=== PATIENT | female | born 1985 | race Caucasian/White ===

== ENCOUNTER → 2017-03-09 | Day surgery (SDC) | payer OTHER ==
[2017-02-28 07:37] VITALS: Ht 157.5 cm; Wt 72.7 kg
[~2017-03-09] VITALS: Ht 157.5 cm; Wt 72.7 kg
[~2017-03-09] MED LIST: ATROPINE SULFATE 0.1 MG/ML 5ML SYR IV PRN; CEFAZOLIN 2000 MG/60 ML D5W IV SCH; FENTANYL CITRATE INJ 50 MCG/1 ML 2 ML VIAL IV PRN; FENTANYL CITRATE INJ 50 MCG/1 ML 2 ML VIAL ONE; FLUO20CA35 PO; HYDR-5688 PO; HYDROCODONE/ACETAMOPHEN 5/325MG TAB PO PRN; IBUP-1105 PO; KETO10TA PO; KETOROLAC TROMETHAMINE 30 MG/ML VIAL IV. PRN; LACTATED RINGER'S 1000ML 1,000 ML IV SCH; LIDOCAINE HCL 2% 2 ML VIAL (20MG/ML) ONE; LIDOCAINE HCL 2% LOCAL 20 ML VIAL ONE; MIDAZOLAM HCL 1 MG/ML 2ML VIAL ONE; ONDANSETRON INJ 2 MG/ML 2 ML VIAL IV PRN; PRLSR20 PO; PROPOFOL IV EMULSION 10 MG/ML 20 ML VIAL IV ONE; SODIUM CHLORIDE 0.9% 1000ML 1,000 ML IV SCH
--- NOTE | 2017-03-09 08:11 | History & Physical Bridge - [place] ---
H&P Re-Evaluation Bridge Note: I have examined the patient, reviewed the History & Physical and in the interval since the performance of the History & Physical I have noted the following changes of clinical significance: No changes noted
--- NOTE | 2017-03-09 10:38 | [facility] Post Operative Brief Note ---
Immediate Operative Summary Operative Date Mar 09, 2017. Pre-Operative Diagnosis Left Carpal Tunnel Syndrome Post-Operative Diagnosis Same Procedure(s) Performed Left Carpal Tunnel Release Surgeon Dr. Holder Student Success Counselor Surgeon(s) Angelique Soares PA-C Estimated Blood Loss 1ml Findings as above Specimens None Complication(s) None Disposition Recovery Room / PACU
[2017-03-09 10:42] VITALS: TEMP 36.8
--- NOTE | 2017-03-09 10:58 | Discharge Instructions-SurgCtr ---
Discharge Instructions Date of Service Mar 09, 2017. Visit Reason for Visit: Left Carpal Tunnel Syndrome, Triggering Of Digit Discharge Discharge Diagnosis / Problem: SAME ABOVE Discharge Goals Goal(s): Decrease discomfort, Improve function Activity Recommendations Activity Limitations: as noted below Anesthesia . Post Anesthesia Instructions: If you have had General Anesthesia or IV Sedation: * Do not drive today. * Resume driving when surgeon permits. * Do not make important decisions or sign legal documents today. * Call surgeon for: 1. Temperature elevations greater than 101 degrees F. 2. Uncontrollable pain. 3. Excessive bleeding. 4. Persistent nausea and vomiting. 5. Medication intolerance (nausea, vomiting or rash). * For nausea and vomiting use only clear liquids such as: tea, soda, bouillon until nausea subsides, then gradually increase diet as tolerated. * If you have any concerns or questions, call your surgeon's office. If physician is unavailable and it is an emergency, call 911 or go to the nearest emergency room. . Instructions / Follow-Up Instructions / Follow-Up MEDICATIONS: * Resume previous medications unless instructed otherwise by your surgeon. * Always take pain medication on a full stomach or with food to avoid upset stomach. * Do not drink alcohol or drive while taking narcotics. * Ibuprofen or Tylenol may be taken if narcotic not needed. SPECIAL CARE INSTRUCTIONS: __ None _X_ Keep extremity elevated and iced x 48 hours; apply ice 20-30 minutes 8-10 times/day. May remove at night. __ Sling __24 hrs/day __ Remove at night __ Shoulder Immobilizer __ 24 hrs/day __ Remove at night _X_ Dressing __ Maintain until seen in office, may shower with plastic over site _X_ Remove dressings in 5 DAYS. MAY SHOWER SOONER IF COVERED WITH PLASTIC BAG _X_ Cover incisions with band-aids after showering __ Do not remove steri-strips Call physician if chills or temperature rises above 102 degrees or pain unrelieved by prescribed pain medications at . . Diet Recommendations Home Diet: no limitations Fluid Restriction: None Procedures Procedures Performed: Left Carpal Tunnel Release Pending Studies Studies pending at discharge: no Work Instructions Return To Work: after follow-up Lifting Limitations: no more than 10 pounds Medical Emergencies . Who to Call and When: Medical Emergencies: If at any time you feel your situation is an emergency, please call 911 immediately. . Non-Emergent Contact Non-Emergency issues call your: Primary Care Provider Call Non-Emergent contact if: you have a fever, temperature is above 101.5 . . "Provider Documentation" section prepared by Martín Soares. .
--- NOTE | 2017-03-09 10:58 | Anesthesia Progress Nt - [facility] ---
Anesthesia Post Op Note Date & Time Mar 09, 2017 at 10:58 Vital Signs Pain Intensity: 0 Vital Signs Past 12 Hours Date Time Temp Pulse Resp B/P Pulse Ox O2 Delivery O2 Flow Rate FiO2 03/09/17 10:42 36.8 68 16 100/64 96 Room Air 03/09/17 07:59 37.0 62 16 121/86 100 Room Air Notes Mental Status: alert / awake / arousable, participated in evaluation Pt Amnestic to Procedure: Yes Nausea / Vomiting: adequately controlled Pain: adequately controlled Airway Patency, RR, SpO2: stable & adequate BP & HR: stable & adequate Hydration State: stable & adequate Anesthetic Complications: no major complications apparent
[2017-03-09 11:15] VITALS: BP 135/90; PULSE 68; O2SAT 99
--- NOTE | 2017-03-09 13:02 | OPERATIVE REPORT ---
DATE OF OPERATION: 03/09/2017 PREOPERATIVE DIAGNOSIS: Carpal tunnel syndrome of the left wrist. POSTOPERATIVE DIAGNOSIS: Same. PROCEDURE: Open left carpal tunnel release. SURGEON: Dr. Nadeem Holder. GROUP SALES MANAGER: James Soares PA-C, whose assistance was necessary for helping with retraction and closure. ANESTHESIA: Local with sedation. COMPLICATIONS: None. CONDITION: Stable to PACU. INDICATIONS: Loulou is a pleasant 31-year-old female who presented to my office with paresthesias in her left hand. 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 After failing conservative treatment, she elected to undergo open carpal tunnel release. Description of procedure: On 03/09/2017 she arrived at [facility] for the above procedure. She was seen in the preoperative holding area and the operative extremity was identified and signed. She was given a preoperative antibiotic, taken back to the operating room, laid on the table in supine position and given basic sedation. The left wrist was then prepped and draped in sterile fashion and time-out was done and the patient and operative extremity was properly identified. The surgical site was anesthetized with 10 mL of lidocaine. An incision was made directly over the transverse carpal ligament. Dissection was taken down through the palmar fascia and the transverse carpal ligament was released. Care was taken to ensure complete proximal and distal release. The wound was then irrigated and closed with 4-0 nylon suture in a mattress fashion. She was then placed in a soft dressing and taken to the postanesthesia care unit in stable condition. She tolerated the procedure well.2 I attest to the content of the Intraoperative Record and any orders documented therein. Any exceptio ns are noted below.
== END | disposition home or self-care (01) ==
LOC: X.SURG 07:39
PROVIDERS: ATTEND Orthopaedic Surgery
DX: G56.02 Carpal tunnel syndrome, left upper limb (principal); F32.9 Major depressive disorder, single episode, unspecified; Z98.890 Other specified postprocedural states; Z68.29 Body mass index [BMI] 29.0-29.9, adult

== ENCOUNTER → 2017-04-06 | Day surgery (SDC) | payer OTHER ==
[2017-03-23 07:45] VITALS: Ht 157.5 cm; Wt 72.7 kg
[~2017-04-06] VITALS: Ht 157.5 cm; Wt 72.7 kg
[~2017-04-06] MED LIST changes: +DEXAMETHASONE SOD INJ 4 MG/ML VIAL ONE; +ONDANSETRON INJ 2 MG/ML 2 ML VIAL ONE
[2017-04-06 07:35] VITALS: TEMP 36.3
--- NOTE | 2017-04-06 07:36 | Discharge Instructions-SurgCtr ---
Discharge Instructions Date of Service April 06, 2017. Visit Reason for Visit: Right Carpal Tunnel Syndrome Discharge Discharge Diagnosis / Problem: SAME ABOVE Discharge Goals Goal(s): Decrease discomfort, Improve function Medications Stopped Medications Name(s): No blood thinners Restart Stopped Medication(s): MAY RESTART 04/07/2017 Activity Recommendations Activity Limitations: as noted below Lifting Limitations: until after follow-up appointment Exercise/Sports Limitations: until after follow-up appointment Driving or Machine Use: resume 1 day after discharge Anesthesia . Post Anesthesia Instructions: If you have had General Anesthesia or IV Sedation: * Do not drive today. * Resume driving when surgeon permits. * Do not make important decisions or sign legal documents today. * Call surgeon for: 1. Temperature elevations greater than 101 degrees F. 2. Uncontrollable pain. 3. Excessive bleeding. 4. Persistent nausea and vomiting. 5. Medication intolerance (nausea, vomiting or rash). * For nausea and vomiting use only clear liquids such as: tea, soda, bouillon until nausea subsides, then gradually increase diet as tolerated. * If you have any concerns or questions, call your surgeon's office. If physician is unavailable and it is an emergency, call 911 or go to the nearest emergency room. . Instructions / Follow-Up Instructions / Follow-Up MEDICATIONS: * Resume previous medications unless instructed otherwise by your surgeon. * Always take pain medication on a full stomach or with food to avoid upset stomach. * Do not drink alcohol or drive while taking narcotics. * Ibuprofen or Tylenol may be taken if narcotic not needed. SPECIAL CARE INSTRUCTIONS: __ None _X_ Keep extremity elevated and iced x 48 hours; apply ice 20-30 minutes 8-10 times/day. May remove at night. __ Sling __24 hrs/day __ Remove at night __ Shoulder Immobilizer __ 24 hrs/day __ Remove at night _X_ Dressing __ Maintain until seen in office, may shower with plastic over site _X_ Remove dressings in 5 DAYS. MAY SHOWER SOONER IF COVERED WITH PLASTIC BAG _X_ Cover incisions with band-aids after showering __ Do not remove steri-strips Call physician if chills or temperature rises above 102 degrees or pain unrelieved by prescribed pain medications at . . Diet Recommendations Home Diet: no limitations Fluid Restriction: None Procedures Procedures Performed: Right Carpal Tunnel Release Pending Studies Studies pending at discharge: no Work Instructions Return To Work: after follow-up (OR WHEN PAIN IS TOLERABLE AND YOU DO NOT HAVE TO LIFT GREATER THAN 10 POUNDS ) Lifting Limitations: no more than 10 pounds Medical Emergencies . Who to Call and When: Medical Emergencies: If at any time you feel your situation is an emergency, please call 911 immediately. . Non-Emergent Contact Non-Emergency issues call your: Primary Care Provider Call Non-Emergent contact if: you have a fever, temperature is above 101.5 . . "Provider Documentation" section prepared by Martín Soares. .
[2017-04-06 08:02] VITALS: BP 125/81; PULSE 56; O2SAT 99
--- NOTE | 2017-04-06 08:04 | Anesthesia Progress Nt - [facility] ---
Anesthesia Post Op Note Date & Time April 06, 2017 at 08:04 Vital Signs Pain Intensity: 0 Vital Signs Past 12 Hours Date Time Temp Pulse Resp B/P Pulse Ox O2 Delivery O2 Flow Rate FiO2 04/06/17 08:02 56 18 125/81 99 Room Air 04/06/17 07:35 36.3 74 16 117/77 95 Room Air 04/06/17 06:34 36.8 65 16 112/73 98 Room Air Notes Mental Status: alert / awake / arousable, participated in evaluation Pt Amnestic to Procedure: Yes Nausea / Vomiting: adequately controlled Pain: adequately controlled Airway Patency, RR, SpO2: stable & adequate BP & HR: stable & adequate Hydration State: stable & adequate Anesthetic Complications: no major complications apparent
--- NOTE | 2017-04-06 09:45 | [facility] Post Operative Brief Note ---
Immediate Operative Summary Operative Date April 06, 2017. Pre-Operative Diagnosis Right Carpal Tunnel Syndrome Post-Operative Diagnosis Same Procedure(s) Performed Right Carpal Tunnel Release Surgeon Dr. Holder Director Export Surgeon(s) Angelique Soares PA-C Estimated Blood Loss 2 ml Findings as above Specimens None Complication(s) None Disposition Recovery Room / PACU
--- NOTE | 2017-04-06 10:30 | OPERATIVE REPORT ---
DATE OF OPERATION: 04/06/2017 PREOPERATIVE DIAGNOSIS: Carpal tunnel syndrome of the right wrist. POSTOPERATIVE DIAGNOSIS: Same. PROCEDURE: Open right carpal tunnel release. SURGEON: Dr. Nadeem Holder. RELOCATION ASSOCIATE: James Soares PA-C, whose assistance was necessary for positioning the hand and helping with instrumentation. ANESTHESIA: Local with sedation. COMPLICATIONS: None. CONDITION: Stable to PACU. INDICATIONS: Loulou is a pleasant 31-year-old female who presented to my office with paresthesias in her right hand. EMG and clinical examination were diagnostic for carpal tunnel syndrome. After failing conservative treatment, she elected to undergo carpal tunnel release. DESCRIPTION OF PROCEDURE: On 04/06/2017, she arrived at [facility] for the above procedure. She was seen in the preoperative holding area and the operative extremity was identified and signed. She was given a preoperative antibiotic, taken back to the operating room, laid on the table in the supine position and given basic sedation. The right wrist was then prepped and draped in sterile fashion. Time-out was done and the patient and operative extremity was properly identified. A longitudinal incision was made over the transverse carpal ligament. Dissection was taken down through the fascia and the transverse carpal ligament was released with a knife and tenotomy scissors. The median nerve was evaluated and complete resection was checked both proximally and distally. The wound was then irrigated and closed with 4-0 nylon sutures in a mattress fashion. She was placed in a soft dressing and taken to the postanesthesia care unit in stable condition. She tolerated the procedure well. I attest to the content of the Intraoperative Record and any orders documented therein. Any exceptio ns are noted below.
== END | disposition home or self-care (01) ==
LOC: X.SURG 06:10
PROVIDERS: ATTEND Orthopaedic Surgery
DX: G56.01 Carpal tunnel syndrome, right upper limb (principal); F32.9 Major depressive disorder, single episode, unspecified; Z90.710 Acquired absence of both cervix and uterus

== ENCOUNTER 2021-05-05 05:42 | Inpatient (IN) ==
--- NOTE | 2021-05-03 09:01 | Anesthesiology Consultation ---
Date of Service May 03, 2021 Assessment & Plan (1) Encounter for pre-operative examination: Chart Review Chart Review: Acceptable Risk for Surgery (pending preop Covid testing results ) and Patient NOT seen in Pre Admission Testing Per nursing assessment on 04/23/21, pt resides in [facility]. Travels to [facility] for medical appts. Pt is NOT vaccinated. Uses mask and avoids large gatherings. No known Covid positive contacts or Covid related symptoms. No known Covid infection in the past 90 days. Preop Covid testing scheduled 05/03/21= will await results. Seen by PCP 04/19/2021 = seen for ER follow-up. Patient seen in ER for atypical chest paincardiac work-up in emergency room was negative. Still has pressure feeling in chest. " Suspect this pain that she is having is actually related to her neck. With this in mind especially with having surgery coming up soon will obtain Holter monitor. If this is negative would then proceed with neck surgery as previously recommended. She really has no major risk factors for underlying heart disease especially at her age. She has not smoked in over 10 years. She is extremely active." (Holter monitor showed no significant arrhythmias or issues) (Discussed with Dr Calderon- patient can proceed as scheduled) Seen at [facility] ER 04/18/21= seen for chest pain x 8 hours (chest pressure), left arm pain and upper neck pain. Mild leukocytosis with WBC ct of 12,000. No significant cardiac history. Troponin was negative with symptoms that have been present for greater than 8 hours. D-dimer was negative. EKG x2 showed no ischemia. HR did trend down with fluids. Discharged to follow up with PCP. History Surgery Operation Date: 05/05/21 07:15 Proposed Procedures p C6-C7 Anterior Cervical Discectomy and Fusion, Autograft, Allograft, Spinal Cord Monitoring - Brittaney Urbina MD Height/Weight Height: 5 ft 2 in Weight: 68.946 kg Allergies Allergy/AdvReac Type Severity Reaction Status Date / Time bee venom protein (honey bee) Allergy Unknown ANAPHYLAXIS Verified 04/23/21 13:23 Penicillins AdvReac Intermediate NAUSEA Verified 04/23/21 13:23 aspirin AdvReac Unknown Unknown Verified 04/23/21 13:23 atomoxetine [From Strattera] AdvReac Unknown Unknown Verified 04/23/21 13:23 ciprofloxacin [From Cipro] AdvReac Unknown Unknown Verified 04/23/21 13:23 Medications Home Medications Medication Instructions Recorded Confirmed Last Taken alprazolam 0.25 mg PO TID PRN 04/18/21 04/23/21 Unknown fluoxetine 20 mg PO QAM 04/18/21 04/23/21 04/18/21 omeprazole 20 mg PO QAM 04/18/21 04/23/21 04/18/21 ibuprofen 800 mg PO Q6H PRN 04/23/21 04/23/21 Unknown Past Medical History Medical History (Updated 05/03/21 @ 10:30 by Leena Horn PA-C) 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 Chest pain Seen at [facility] ER 04/18/21- cardiac work up negative Holter monitor done 04/26/21 Incontinence Past Surgical History Surgical History H/O: hysterectomy History of bladder surgery Social History Smoking Status: Never smoker Do You Dip or Chew Tobacco: No Hx Alcohol Use: Yes Alcohol type: wine alcohol intake frequency: a few times a week Hx Substance Use: No substance use type: does not use Lab Results Anesthesia Preop Results Results Anesthesia Widget: WBC 8.52 K/uL (4.8-10.8) 04/22/21 Hgb 14.0 g/dL (12.0-16.0) 04/22/21 Hct 41.0 % (37-47) 04/22/21 Plt 257 K/uL (130-400) 04/22/21 Na 138 mmol/L (136-145) 04/18/21 K 3.5 mmol/L (3.5-5.1) 04/18/21 Cl 104 mmol/L (98-107) 04/18/21 CO2 26 mmol/L (21-32) 04/18/21 BUN 13 mg/dl (7-18) 04/18/21 Creat 0.76 mg/dl (0.6-1.2) 04/18/21 Glucose Level 95 mg/dl (70-99) 04/18/21 Blood Type A Positive 04/22/21 Antibody Screen NEGATIVE 04/22/21 Testing Electrocardiogram Date: 04/18/21 Findings: + NSR @ (99bpm) Normal EKG per cardio. Chest X-Ray Date: 04/18/21 Findings: + NAD Other Testing Holter monitor 04/26/2021 = rare PACs. No pairs, triplets. No PSVT. Rare PVCs. No pairs, triplets, grouped beating, no NSVT. Sinus tachycardia. Sinus bradycardia. No pauses > 2 seconds. No high-grade AV block. Patient reports "palpitations" x2. Corresponds to normal sinus rhythm.
[2021-05-05] MEDS ORDERED: LR 60ML/HR IV SCH (06:00)
[2021-05-05] MEDS ORDERED: LR 15ML/HR IV SCH (06:00)
[2021-05-05] MEDS ORDERED: ceFAZolin 2000MG 2,000 MG/15 ML SYR IV SCH (06:00)
[2021-05-05] MEDS ORDERED: LIDOCAINE 2% 20 MG/ML 5 ML SYR IV ONE (06:50)
[2021-05-05] MEDS ORDERED: SUCCINYLCHOLINE 100MG/5ML SYR IV ONE (06:50)
[2021-05-05] MEDS ORDERED: MIDAZOLAM HCL 1 MG/ML 2ML VIAL ONE (06:50)
[2021-05-05] MEDS ORDERED: PROPOFOL IV EMULSION 10 MG/ML 20 ML VIAL IV ONE ×2 (06:50→08:38)
[2021-05-05] MEDS ORDERED: THROMBIN 5000 UNITS KIT ONE (06:51)
[2021-05-05] MEDS ORDERED: fentaNYL citrate 100 MCG/2 ML VIAL ONE ×3 (06:51→10:46)
[2021-05-05] MEDS ORDERED: GELATIN SPONGE SZ 100 ONE (06:51)
--- NOTE | 2021-05-05 06:54 | History & Physical Bridge Note ---
Date of Service May 05, 2021 History & Physical Bridge Note I have examined the patient, reviewed the History & Physical and in the interval since the performance of the History & Physical I have noted the following changes of clinical significance: no changes noted New changes compared to last appointment: notes some reduced sensation left hand that is now constant Musculoskeletal: 5/5 motor strength bilateral C5-T1, L2-S1 except right C7 4+/5, C8 4/5, T1 4/5. Neurologic: Sensation 2/2 to light touch bilateral C5-T1, L2-S1 except left C7, C8 1/2. Patient marked for surgery. All new questions about procedure answered. Informed consent confirmed
[2021-05-05] MEDS ORDERED: PROPOFOL IV EMULSION 10 MG/ML 100 ML VIAL IV ONE ×2 (06:59→08:38)
[2021-05-05] MEDS ORDERED: REMIFENTANIL HCL 1 MG VIAL ONE ×2 (07:05→08:22)
[2021-05-05] MEDS ORDERED: ONDANSETRON INJ 2 MG/ML 2 ML VIAL ONE (08:32)
[2021-05-05] MEDS ORDERED: SUCCINYLCHOLINE CHLORIDE 20 MG/ML 10 ML VIAL IV ONE (08:32)
[2021-05-05] MEDS ORDERED: DEXAMETHASONE SOD INJ 4 MG/ML VIAL ONE (08:32)
[2021-05-05] MEDS ORDERED: GLYCOPYRROLATE 0.2 MG/ML VIAL ONE (08:38)
[2021-05-05] MEDS ORDERED: FLOSEAL HEMOSTATIC MATRIX 10ML TOP ONE (10:07)
--- NOTE | 2021-05-05 11:01 | Post Operative Brief Note ---
PG Immediate Post Op with CF Date of Surgery May 05, 2021 Pre & Post Diagnosis Operation Date: 05/05/21 07:15 Pre-Op Diagnosis: Cervical Myelopathy with stenosis at C6-C7 Post-Op Diagnosis: Cervical Myelopathy with stenosis at C6-C7 I identified the patient and participated in the time-out.: Yes Procedure Actual Procedure C6-C7 Anterior Cervical Discectomy and Fusion, Local Autograft, Allograft Surgeon Brittaney Urbina MD Detective Captain Anton Reid PA-C Estimated Blood Loss 50 Findings Consistent with Post-Op Diagnosis Drains Sidney-Buchanan Drain (10 Fr)
[2021-05-05] MEDS ORDERED: ONDANSETRON INJ 2 MG/ML 2 ML VIAL IV PRN ×2 (11:04→12:14)
[2021-05-05] MEDS ORDERED: ATROPINE SULFATE 0.1 MG/ML 10ML SYR IV PRN (11:04)
[2021-05-05] MEDS ORDERED: PROMETHAZINE HCL 6.25 MG in SODIUM CHLORIDE 0.9% 50 ML IV PRN (11:04)
[2021-05-05] MEDS ORDERED: HYDROmorphone INJ 1 MG/ML SYRINGE ONE ×2 (11:12→11:38)
[2021-05-05] MEDS: HYDROmorphone INJ 1 MG/ML SYRINGE IV PRN ×5 (11:12→11:40)
--- NOTE | 2021-05-05 11:12 | Communication Note ---
Date of Service: May 05, 2021 Post-op routine neurological assessment completed Patient awake, alert No new neurological deficits noted Musculoskeletal: 5/5 motor strength bilateral C5-T1, L2-S1 except right C7 4+/5, C8 4/5, T1 4/5. Neurologic: Sensation 2/2 to light touch bilateral C5-T1, L2-S1.
--- NOTE | 2021-05-05 11:16 | XRay Report ---
XR cervical spine 1V HISTORY: 35 years-old Female ACDF C6-C7 XRAYS IN OR CERVICAL spine fusion COMPARISON: Cervical spine radiographs 04/13/2021 TECHNIQUE: 5 crosstable lateral views of the cervical spine were symmetric for review. FINDINGS: Endotracheal tube noted. Mild intervertebral disc space narrowing redemonstrated at C6-C7 with associ ated spondylitic spurring. This interspace is suboptimally visualized secondary to overlying soft tis chandan. Subsequent images demonstrate anterior plate and screw fusion with discectomy at this level.. Wi thin the limitations of the study, alignment appears satisfactory and the hardware appears intact. No acute fracture or malalignment. A surgical sponge is noted within the operative bed on image 4, carito yeimy on image 5. Radiopaque sponge overlies the upper cervical spine and mandible on the last image. IMPRESSION: Discectomy with anterior plate and screw fusion at C6-C7. ACT 112: Negative or not required by law. The above report was generated using voice recognition software. It may contain grammatical, syntax o r spelling errors. Electronically signed by: Erasmo Saldaña M.D. 05/05/2021 11:14 AM
--- NOTE | 2021-05-05 12:11 | Anesthesiology Progress Note ---
Date of Service May 05, 2021 Anesthesia Post Procedure Vital Signs Vital Signs: Temp Pulse Pulse Resp BP BP Pulse Ox 05/05/21 12:00 36.5 C 62 14 134/77 98 05/05/21 11:50 62 14 129/82 98 05/05/21 11:40 63 14 128/95 98 05/05/21 11:30 63 16 142/94 H 98 05/05/21 11:20 74 16 137/99 96 05/05/21 11:10 72 16 132/74 98 05/05/21 11:00 66 15 128/84 98 05/05/21 10:51 36.5 C 67 20 144/82 H 100 05/05/21 06:16 36.9 C 74 16 110/79 98 Pain Intensity Lower Back: Pain Intensity: 5 Neck: Pain Intensity: 3 Transfer of Care Handoff Completed per policy Notes Mental Status: alert / awake / arousable Patient Amnestic to Procedure: Yes Nausea / Vomiting: adequately controlled Pain: adequately controlled Airway Patency, RR, SpO2: stable & adequate BP & HR: stable & adequate Hydration State: stable & adequate Anesthetic Complications: no major complications apparent
[2021-05-05] MEDS ORDERED: DO NOT ADMINISTER PNEUMOCOCCAL VACCINE PRN (12:14)
[2021-05-05] MEDS ORDERED: ACETAMINOPHEN 1,000 MG/100 ML VIAL IV PRN (12:14)
[2021-05-05] MEDS ORDERED: NALOXONE HCL 0.4 MG/1 ML VIAL/CARP IV PRN (12:14)
[2021-05-05] MEDS ORDERED: LORazepam 0.5 MG TAB PO PRN (12:14)
[2021-05-05] MEDS ORDERED: diphenhydrAMINE Capsule 25 MG CAP PO PRN (12:14)
[2021-05-05] MEDS ORDERED: ALPRAZolam 0.25 MG TABLET PO PRN (12:14)
[2021-05-05] MEDS ORDERED: ONDANSETRON 4 MG OD TAB PO PRN (12:14)
[2021-05-05] MEDS ORDERED: SOD PHOSPHATE/SOD BIPHOSPHATE ENEMA 132 ML BTL PR PRN (12:14)
[2021-05-05] MEDS ORDERED: DO NOT ADMINISTER FLU VACCINE PRN (12:14)
[2021-05-05] MEDS ORDERED: PROMETHAZINE HCL 12.5 MG in SODIUM CHLORIDE 0.9% 50 ML IV PRN (12:14)
[2021-05-05] MEDS ORDERED: RACEPINEPHRINE 2.25% NEBU SOLN 0.5 ML VIAL INH PRN (12:14)
[2021-05-05] MEDS ORDERED: LACTATED RINGER'S 1,000 ML IV SCH (12:14)
[2021-05-05] MEDS ORDERED: MAGNESIUM HYDROXIDE SUSP 30 ML UDC PO PRN (12:14)
[2021-05-05] MEDS ORDERED: FAMOTIDINE 20 MG TAB PO PRN (12:14)
[2021-05-05] MEDS ORDERED: dexAMETHasone 8 MG in SYRINGE 0 ML IV PRN (12:14)
[2021-05-05] MEDS ORDERED: HYDROmorphone INJ 0.5 MG/0.5 ML SYR IV PRN (12:14)
[2021-05-05] MEDS ORDERED: ALUMINUM/MAGNESIUM SUSP 30 ML UDC PO PRN (12:14)
[2021-05-05] MEDS ORDERED: ACETAMINOPHEN 500 MG TAB PO PRN (12:14)
[2021-05-05] MEDS ORDERED: LORazepam 0.5 MG/1 ML VIAL IV PRN (12:14)
[2021-05-05] MEDS: HYDROCODONE/ACETAMOPHEN 5/325MG TAB PO PRN ×3 (13:02→21:29)
[2021-05-05] MEDS: ceFAZolin 2000MG 2,000 MG/15 ML SYR IV SCH (15:33)
[2021-05-05] MEDS ORDERED: COUGH DROP (SUGAR FREE) LOZ 24 LOZ/1 BOX BUCCAL PRN (16:20)
[2021-05-05] MEDS: DOCUSATE SODIUM/SENNA 50/8.6MG TAB PO SCH (20:31)
[2021-05-06] MEDS: ceFAZolin 2000MG 2,000 MG/15 ML SYR IV SCH (00:15)
[2021-05-06] MEDS: POLYETHYLENE (MIRALAX) 17 GM PACK PO SCH ×4 (05:21→23:28)
[2021-05-06] MEDS: HYDROCODONE/ACETAMOPHEN 5/325MG TAB PO PRN ×3 (05:57→20:42)
[2021-05-06 06:22] LABS: Basophils # (auto) 0.01 K/uL (0-0.2); Basophils % (auto) 0.1 %; Eosinophils # (auto) 0.02 K/uL (0-0.5); Eosinophils % (auto) 0.1 %; Hematocrit (blood only) 41.3 % (37-47); Hemoglobin 13.8 g/dL (12.0-16.0); Immature Granulocytes # (auto) 0.03 K/uL (0.00-0.02); Immature Granulocytes % (auto) 0.2 %; Lymphocytes # (auto) 2.54 K/uL (1.2-3.4); Lymphocytes % (auto) 18.6 %; Mean Corpuscular Hemoglobin 31.6 pg (25-34); Mean Corpuscular Hgb Conc 33.4 g/dL (32-36); Mean Corpuscular Volume 94.5 fL (80-100); Mean Platelet Volume 9.6 fL (7.4-10.4); Monocytes # (auto) 1.42 K/uL (0.11-0.59); Monocytes % (auto) 10.4 %; Neutrophils # (auto) 9.64 K/uL (1.4-6.5); Neutrophils % (auto) 70.6 %; Platelet Count 256 K/uL (130-400); RDW Coefficient of Variation 12.5 % (11.5-14.5); RDW Standard Deviation 43.1 fL (36.4-46.3); Red Blood Count 4.37 M/uL (4.2-5.4); White Blood Count 13.66 K/uL (4.8-10.8)
[2021-05-06 06:57] LABS: BUN Creatinine Ratio 8.3 (10-20); Calcium 8.8 mg/dl (8.5-10.1); Creatinine Clr Calc Pharmacy 109.9 ml/min; Est GFR (African American) 132.1 ml/min; Potassium 3.3 mmol/L (3.5-5.1)
--- NOTE | 2021-05-06 08:05 | Orthopedic Progress Note ---
Date of Service May 06, 2021 Assessment & Plan (1) Status post spinal surgery: upright x-rays when able drain to be removed today d/c home likely tomorrow hospitalist consult placed; will appreciate their assessment of patient BMP test ordered for tomorrow, K+ oral supplementation today Admission and Anticipated Discharge Date Admission Date: May 05, 2021 Subjective no new numbness/weakness nohoarseness nodysphagia. Drinking well/eating well pain well-controlled Hgb 13.8 this AM Glucose 105 this AM K+ 3.3 this AM. PO replacement ordered chronic chest pain with no change in location, radiation, intensity or frequency. previously investigated by can coverer with ECG and holter monitor recently as per patient with no active treatment and no abnormalities noted denies SOB. denies radiation of pain to arms. denies nausea+vomiting. denies lightheadedness appreciate hospitalist involvement with patient Physical Exam Physical Exam: vitals: see vital signs section; on RA neck: soft, non-distended dressing: clean, dry intact drain: 5 cc/8hr vascular: no calf tenderness or swelling bilaterally. no signs of DVT neuro: 5/5 motor strength bilateral C5-T1, L2-S1 except right C7 4+/5, C8 4/5, T1 4/5. 2/2 sensation to light touch bilateral C5-T1, L2-S1 (resolved left hand numbness as patient today). Results & Data ([facility]) Vital Signs (Past 12 Hours) Vital Signs Temp Pulse Resp BP Pulse Ox 05/06/21 07:59 37.0 C 63 16 134/87 97 05/06/21 07:00 66 16 96 05/06/21 06:01 36.8 C 69 14 146/90 H 99 05/06/21 04:24 36.8 C 66 14 114/72 95 05/06/21 03:15 60 16 93 05/06/21 02:24 36.7 C 65 14 103/67 95 05/06/21 00:15 36.5 C 63 14 117/72 96 05/05/21 23:09 63 20 96 05/05/21 22:15 36.5 C 60 14 130/85 96 05/05/21 20:15 36.8 C 92 H 16 107/61 96 Diagnostic Findings post-op x-ray cervical spine pending PG Care Time/CCT Total # of Minutes Spent Total Time Spent with Patient: Total time spent is greater than 50% in coordination of care (as documented) at patient's floor/unit and/or counseling patient: Coding Level of Care Code None Diagnoses Status post spinal surgery Z98.890
[2021-05-06] MEDS: PANTOprazole 40 MG TAB PO SCH (08:29)
[2021-05-06] MEDS: FLUoxetine HCL 20 MG CAP PO SCH (08:29)
--- NOTE | 2021-05-06 08:33 | Anesthesiology Progress Note ---
Date of Service May 06, 2021 Anesthesia Post Procedure Vital Signs Vital Signs: Temp Pulse Pulse Pulse Resp BP Pulse Ox 05/06/21 07:59 37.0 C 63 16 134/87 97 05/06/21 07:00 66 16 96 05/06/21 06:01 36.8 C 69 14 146/90 H 99 05/06/21 04:24 36.8 C 66 14 114/72 95 05/06/21 03:15 60 16 93 05/06/21 02:24 36.7 C 65 14 103/67 95 05/06/21 00:15 36.5 C 63 14 117/72 96 05/05/21 23:09 63 20 96 05/05/21 22:15 36.5 C 60 14 130/85 96 05/05/21 20:15 36.8 C 92 H 16 107/61 96 05/05/21 19:30 89 22 95 05/05/21 18:14 36.6 C 56 L 16 133/92 96 05/05/21 15:14 77 18 96 05/05/21 15:00 36.6 C 56 L 16 110/60 97 05/05/21 14:00 36.7 C 63 16 132/79 96 05/05/21 13:04 65 18 123/75 95 05/05/21 13:02 59 L 18 96 05/05/21 12:30 36.5 C 80 16 142/90 H 96 05/05/21 12:15 36.5 C 80 16 137/87 94 05/05/21 12:00 36.5 C 62 14 134/77 98 05/05/21 11:50 62 14 129/82 98 05/05/21 11:40 63 14 128/95 98 05/05/21 11:30 63 16 142/94 H 98 05/05/21 11:20 74 16 137/99 96 05/05/21 11:10 72 16 132/74 98 05/05/21 11:00 66 15 128/84 98 05/05/21 10:51 36.5 C 67 20 144/82 H 100 Pulse Ox 05/06/21 07:59 05/06/21 07:00 05/06/21 06:01 05/06/21 04:24 05/06/21 03:15 05/06/21 02:24 05/06/21 00:15 05/05/21 23:09 05/05/21 22:15 05/05/21 20:15 05/05/21 19:30 05/05/21 18:14 05/05/21 15:14 05/05/21 15:00 05/05/21 14:00 05/05/21 13:04 05/05/21 13:02 05/05/21 12:30 05/05/21 12:15 95 05/05/21 12:00 05/05/21 11:50 05/05/21 11:40 05/05/21 11:30 05/05/21 11:20 05/05/21 11:10 05/05/21 11:00 05/05/21 10:51 Pain Intensity Lower Back: Pain Intensity: 4 Neck: Pain Intensity: 4 Notes Mental Status: alert / awake / arousable and participated in evaluation Patient Amnestic to Procedure: Yes Nausea / Vomiting: adequately controlled Pain: adequately controlled Airway Patency, RR, SpO2: stable & adequate BP & HR: stable & adequate Hydration State: stable & adequate Anesthetic Complications: no major complications apparent
[2021-05-06] MEDS ORDERED: DICLOFENAC SOD 1% GEL 100 GM TUBE EXT STA (09:32)
[2021-05-06] MEDS: POTASSIUM CHLORIDE CRTAB 20 MEQ TABCR PO SCH ×2 (09:59→20:44)
--- NOTE | 2021-05-06 10:30 | XRay Report ---
CERVICAL SPINE 2 VIEWS CLINICAL HISTORY: Postoperative examination. FINDINGS: A PA and lateral views of the cervical spine are compared to study dated 05/05/2021. The ske letal structures are well mineralized. There is no radiographic evidence of fracture or subluxation. The atlantodental articulation is maintained. The spinolaminar line is preserved. Vertebral body heig ht and alignment are maintained. There is straightening of the cervical lordosis. There has been disc ectomy at C6-C7 with anterior fusion at this level. The orthopedic hardware appears intact. Surgical drain is in place. The spinous processes appear intact. The disc spaces appear maintained. Prevertebr al soft tissue edema is nonspecific and likely related to recent surgery. Visualized apical lung pare nchyma appears clear. IMPRESSION: 1. No acute bony abnormality is seen involving the cervical spine. 2. Postoperative change as above. 3. Prevertebral soft tissue edema is nonspecific and likely related to recent surgery. ACT 112: Negative or not required by law. Electronically signed by: Tino Cifuentes M.D. 05/06/2021 10:29 AM
--- NOTE | 2021-05-06 15:24 | Hospitalist Consultation ---
Date of Consultation May 06, 2021 Assessment & Plan (1) Status post spinal surgery: S/p C6-C7 Anterior Cervical Discectomy and Fusion with Dr. Urbina on 05/05. - Drain removed today. - Post-op care per primary team. - DVT ppx per primary team (2) Chest pain: Likely MSK vs. neuropathic pain. No suspicion this is cardiac in nature. - Will trial Voltaren gel in the hospital. - Discussed transition from fluoxetine to duloxetine - Despite its help, the patient was not as interested in restarting gabapentin, so defer this to outpatient. (3) DVT prophylaxis: SCDs - Chemoprophylaxis per primary team. Patient is low risk for VTE given age, general wellness. History of Present Illness Attending Physician: Brittaney Urbina MD History of Present Illness 35yo F w/ hx of cervical myelopathy who presents as a routine medical consult after C6-C7 Anterior Cervical Discectomy and Fusion with Dr. Urbina on 05/05. Patient is in a good state of health on my interview. Her neck pain is very tolerable, and she has no neurologic complaints re: her neck or arms. She notes some chest, left shoulder, and upper spinal pain that she reports has been ongoing for almost a year. She calls the pain "chest pain," but most of her emphasis is actually on the upper spine and shoulder. She reports that the pain is in the left, upper chest area, left shoulder, and in between her shoulder blades. It is a dull pain which can last for a few hours, and then occasionally worsens with a stabbing quality. She denies any recent exacerbating or ameliorating factors. She also denies any associated symptoms. She says that she was previously on gabapentin which did significantly help the pain, but she stopped it because she "shouldn't be in this much pain" and didn't like to be on medications. Since that time the pain has been worse. Allergies Allergy/AdvReac Type Severity Reaction Status Date / Time ciprofloxacin [From Cipro] Allergy Intermediate Rash Verified 05/05/21 06:14 bee venom protein (honey bee) Allergy Unknown ANAPHYLAXIS Verified 05/05/21 06:14 Penicillins AdvReac Intermediate NAUSEA Verified 05/05/21 06:14 aspirin AdvReac Unknown Unknown Verified 05/05/21 06:14 atomoxetine [From Strattera] AdvReac Unknown Unknown Verified 05/05/21 06:14 Home Medications Medication Instructions Recorded Confirmed Type alprazolam [Xanax] 0.25 mg PO TID PRN 04/18/21 05/05/21 History fluoxetine [Prozac] 20 mg PO QAM 04/18/21 05/05/21 History omeprazole 20 mg PO QAM 04/18/21 05/05/21 History ibuprofen 800 mg PO Q6H PRN 04/23/21 05/05/21 History Patient History Medical History 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 delivery delivered times two Chest pain Seen at [facility] ER 04/18/21- cardiac work up negative Holter monitor done 04/26/21 Incontinence Steel plate in left arm placed in at age 10. removed at age 19 years. 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 How many Children do You have: 2 Other Information That Helps Us Care for You: No Feels Safe at Home: Yes Safety Concerns: Feels Safe At This Time Assistive Devices: None Physical Exam Constitutional: WD/WN, vitals as above Eyes: EOM intact bilaterally; no conjunctival abnormality ENMT: external ear and nose normal, oropharynx normal Neck: trachea midline, no thyromegaly normal visual inspection Respiratory: normal respiratory effort, lungs clear to auscultation no respiratory distress Cardiovascular: RRR, no murmur, no edema Gastrointestinal (Abdomen): Inspection/Auscultation: abdomen normal to inspection; abdomen not distended Musculoskeletal: no cyanosis or clubbing, extremities motor strength 5/5 Skin: no rashes, warm and dry Neurologic: moves all extremities and awake Psychiatric: Orientation: alert, oriented to person and cooperative Results & Data Results & Data ([facility]) Vital Signs (Past 12 Hours) Vital Signs Temp Pulse Resp BP Pulse Ox 05/06/21 13:26 36.6 C 85 16 131/88 95 05/06/21 12:30 37.1 C 81 16 119/77 96 05/06/21 11:00 67 18 99 05/06/21 10:05 36.5 C 65 18 153/86 H 97 05/06/21 07:59 37.0 C 63 16 134/87 97 05/06/21 07:00 66 16 96 05/06/21 06:01 36.8 C 69 14 146/90 H 99 05/06/21 04:24 36.8 C 66 14 114/72 95 05/06/21 03:15 60 16 93 PG Care Time/CCT Total # of Minutes Spent Total Time Spent with Patient: Total time spent is greater than 50% in coordination of care (as documented) at patient's floor/unit and/or counseling patient: Coding Level of Care Code 13472 Inpt Consult Level 4 Diagnoses Status post spinal surgery Z98.890 Chest pain R07.9 DVT prophylaxis Z29.9
[2021-05-06] MEDS ORDERED: CAPSAICIN CR 0.075% 60 GM TUBE EXT PRN (17:32)
[2021-05-06] MEDS: DOCUSATE SODIUM/SENNA 50/8.6MG TAB PO SCH (20:45)
[2021-05-07] MEDS: HYDROCODONE/ACETAMOPHEN 5/325MG TAB PO PRN ×2 (02:29→07:31)
[2021-05-07] MEDS: POLYETHYLENE (MIRALAX) 17 GM PACK PO SCH (05:14)
[2021-05-07 07:22] LABS: BUN Creatinine Ratio 15.1 (10-20); Calcium 8.9 mg/dl (8.5-10.1); Creatinine Clr Calc Pharmacy 117.2 ml/min; Est GFR (Non-African American) 116.4 ml/min
[2021-05-07] MEDS: PANTOprazole 40 MG TAB PO SCH (07:32)
[2021-05-07] MEDS: FLUoxetine HCL 20 MG CAP PO SCH (07:32)
--- NOTE | 2021-05-07 08:03 | Orthopedic Progress Note ---
Date of Service May 07, 2021 Assessment & Plan (1) Status post spinal surgery: d/c home today Admission and Anticipated Discharge Date Admission Date: May 05, 2021 Subjective no new numbness/weakness no hoarseness no dysphagia. Drinking well/eating well pain well-controlled K+ 4.0 this AM hospitalist involved in patient's care, cleared from medical stand-point for discharge with no concerning cardiac features noted from her chronic chest pain complaints Physical Exam Physical Exam: vitals: see vital signs section; on RA neck: soft, non-distended dressing: clean, dry intact drain: removed vascular: no calf tenderness or swelling bilaterally. no signs of DVT neuro: 5/5 motor strength bilateral C5-T1, L2-S1 except right C7 4+/5, C8 4/5, T1 4/5. 2/2 sensation to light touch bilateral C5-T1, L2-S1 Results & Data ([facility]) Vital Signs (Past 12 Hours) Vital Signs Temp Pulse Resp BP Pulse Ox 05/07/21 07:34 36.8 C 68 16 114/76 97 05/07/21 07:00 75 16 98 05/07/21 02:55 64 16 98 05/07/21 02:51 36.9 C 60 16 138/83 97 05/06/21 22:54 36.8 C 67 16 115/78 95 05/06/21 22:00 75 14 96 Diagnostic Findings upright x-ray cervical AP/lat: appropriate alignment of hardware PG Care Time/CCT Total # of Minutes Spent Total Time Spent with Patient: Total time spent is greater than 50% in coordination of care (as documented) at patient's floor/unit and/or counseling patient: Coding Level of Care Code None Diagnoses Status post spinal surgery Z98.890
--- NOTE | 2021-05-07 08:07 | Discharge Summary ---
Date of Service May 07, 2021 Principal Diagnosis cervical myelopathy Discharge Data Allergies Allergy/AdvReac Type Severity Reaction Status Date / Time ciprofloxacin [From Cipro] Allergy Intermediate Rash Verified 05/05/21 06:14 bee venom protein (honey bee) Allergy Unknown ANAPHYLAXIS Verified 05/05/21 06:14 Penicillins AdvReac Intermediate NAUSEA Verified 05/05/21 06:14 aspirin AdvReac Unknown Unknown Verified 05/05/21 06:14 atomoxetine [From Strattera] AdvReac Unknown Unknown Verified 05/05/21 06:14 Consultations 05/06/21 07:57 Consult Hospitalist Routine Procedures Performed Operation Date: 05/05/21 07:15 Actual Procedures p C6-C7 Anterior Cervical Discectomy and Fusion, Local Allograft, Spinal Cord Monitoring(Not Applicable) - Brittaney Urbina MD Hospital Course (1) Status post spinal surgery: Patient underwent the above mentioned procedure. There were no complications noted intra-op. Post-operatively, patient was sent to recovery and then floor. Pain was well-controlled throughout stay. Drain was removed on post- op day 1. Patient was followed closely by hospitalist service throughout stay with regards to a chronic complaint of chest pain from before admission, and was cleared for discharge medically by this team. Patient was able to ambulate, void, and tolerate PO intake at time of discharge. Verbal discharge and follow- up instructions were given. Total Time Total Time Spent Total Time Spent (In Minutes): 25 Discharge Plan Discharge Items Patient Disposition: Home - Self-Care Reason For Visit: Cervical Myelopathy Discharge Diagnosis: Cervical myelopathy Activity: Per Instructions section Non-emergency contact: Primary Care Provider Call non-emergency contact if: you have any medication questions Follow-up/Referrals: Erendira Lombardi MD [Primary Care Provider] - 05/19/21 8:00 am Diet: Regular Addtl Attending Provider Instructions: Anterior Cervical Decompression Fusion (ACDF) Recovery What to expect You've had surgery, the first step toward the goals of decreasing neck and/or arm pain, and stopping symptoms of spinal cord compression from getting worse. Now it's time to focus on healing. By following these tips, you will set yourself up for a successful outcome after surgery. Top 4 things to know 1. Pain in the back of the neck and between the shoulder blades is common after ACDF surgery. It also is normal to have some swallowing difficulty. These usually get better over the next few weeks. If you have trouble breathing, call 911 or go to an emergency room immediately. 2. Do not use nicotine for at least three months. Nicotine will slow down your healing. 3. Avoid taking anti-inflammatory medications (NSAIDs) for six to 12 weeks or until your surgeon tells you it's safe to use them. NSAIDs include ibuprofen (Motrin, Advib), naproxen (Aleve, Naprosyn), meloxicam (Mobic), Celebrex and diclofenac. 4. In some cases, you do not need a collar after surgery. If your surgeon gave you one, you should wear it as directed until your first follow-up appointment. Avoid excessive bending and twisting of your neck after surgery. Your surgeon will decide when your collar can come off. Breathing If you have any trouble breathing or have excessive swelling in your neck, call 911 or go to an emergency room immediately. Pain and weakness Neck pain, pain between the shoulder blades and a funny feeling when you swallow are normal after ACDF. These should get better over the next few weeks. Numbness, tingling and weakness that you had before surgery may take time to improve. Your collar If you were given a collar to wear, the goal of it is to keep your chin up and away from your chest. Your chin needs to be on top of the collar, not down in the collar. Wear your collar until your first follow-up appointment after surgery. You may take the collar off to shower. While the collar is off, keep your head as still as possible and your chin up. Taking care of your incision You can take your dressing off when you get home from the hospital. Underneath the dressing you will have adhesive wound closures (Steri-strips) over your incision when you come home from the hospital. These will fall off on their own within 14 days. If they have not fallen off after 14 days, you can remove them. If your incision has no drainage, it can be left uncovered after three days. Showering You can take a shower three days after surgery. Take your collar off while in the shower. Avoid taking tub baths, swimming and going in hot tubs until the incision is completely healed (four to six weeks). Taking medication Do not take anti-inflammatory medications (NSAIDS) for at least three months after surgery. These drugs can interfere with how you heal. NSAIDs include ibuprofen, Advil, Aleve, naproxen, Naprosyn, Mobic, meloxicam, Celebrex, diclofenac. If you need refills on your prescriptions, contact our office at least two days before you are out of pills so we have sufficient time to process your request. Refill requests on Monday afternoons and holidays likely will be addressed on the next business day. Start weaning yourself from pain medications as soon as you are able. Remember, pain is a natural part of the healing process. The goal is not to eliminate all pain but to keep you comfortable as you heal. Pain medications should be used only for a short period of time. Before taking Tylenol (acetaminophen), be aware that your pain medication probably has acetaminophen in it. Taking additional Tylenol or acetaminophen can put you over the daily recommended 3,000 milligrams, which can harm your liver. If you are taking a muscle relaxer, one of the side effects is drowsiness. If you feel too drowsy to safely get up and move around, take the muscle relaxer less often. Do not use tobacco products If you had been a smoker or used tobacco, you were required to stop before surgery You've come this far, so why not quit for good. If you cannot do so, you must not use tobacco products for at least three months. Nicotine will keep you from properly healing If you have any other concerns, call our office at: before going to an emergency room. In most cases we can help you or get you an appointment quickly Be active, but no lifting We want you to be active as soon as you get home from the hospital. Get up and walk often. If you go up and down stairs, make sure you hold onto the railing and have someone with you. Avoid bending and twisting your neck as much as you can, and do not lift anything over 10 pounds until your surgeon says it's OK. And no driving You cannot drive until you are no longer taking narcotic pain medications or muscle relaxers and you can move well enough to be safe behind the wheel. Most patients can begin driving after the 6 week postoperative appointment. Your surgeon will let you know when you can start driving Eating Ice and Popsicles can help relieve a sore throat. Eat soft foods that are easy to swallow. Take small bites and chew your food well. You can begin eating other foods gradually as you start to feel better. Constipation and bloating Constipation is a common side effect of taking narcotic pain medication and a good reason to begin tapering yourself off of pain medication as soon as you can. Drink lots of fluids, be active and eat foods high in fiber to help relieve constipation If constipation is bothering you, a stool softener or laxative may help. Try one of the following, and always follow the instructions: Milk of Magnesia, MiraLAX, Dulcolax suppository. Fleet enema, magnesium citrate. When is it an emergency? If you have any of the following symptoms, call 911 or go to an emergency room right away: Trouble breathing Chest pain Excessive neck swelling Significant new weakness since your surgery If you have any other concern, call our office at [phone] before going to an emergency room. In most cases we can help you or get you an appointment quickly. Addtl Student Success Advisor Provider Instructions: Ms. Newell, This part is from Dr. Harvey. We spoke about your chest, shoulder, and back pain. Since the Voltaren gel didn't seem to help, I do think that moving from Prozac to Cymbalta (also called duloxetine) may help your pain. This needs to be done gradually and in team with your PCP. Please do NOT stop the Prozac all at once as this can actually cause increased symptoms. I have also sent a script for the capsaicin 0.1% cream since maybe that helped a bit more than the Voltaren gel. Please be super careful with this cream and wash your hands immediately after use. Keep it away from your surgical site and any o pen cuts, blisters, etc. It will burn a lot if it gets on open skin so be careful. It will also burn if you touch your eye after putting it on. It might be best to wear a medical glove on the hand that is applying it to avoid having any residual cream on your skin after applying it. The capsaicin cream actually becomes more effective the longer you use it, so if it's helping some (but not completely), please continue to try it as it may help more over the next few days or weeks. I hope you start to feel better soon! Pending Studies at Discharge: No Stand-Alone Forms: [facility], Opioid Pain Management Medications and DC Order Prescriptions: New hydrocodone-acetaminophen 5-325 mg Tablet 1 - 2 tab PO Q4H PRN (Reason: pain) Qty: 30 RF: 0 hydrocodone-acetaminophen 5-325 mg tablet 1 tab PO Q4H PRN (Reason: pain) Qty: 20 RF: 0 capsaicin 0.1 % cream 1 applic topical QID PRN (Reason: Shoulder, chest, back pain) Qty: 42.5 RF: 0 Continued alprazolam [Xanax] 0.25 mg tablet 0.25 mg PO TID PRN (Reason: Anxiety) RF: 0 omeprazole 20 mg capsule,delayed release(DR/EC) 20 mg PO QAM RF: 0 fluoxetine [Prozac] 20 mg capsule 20 mg PO QAM RF: 0 Discontinued ibuprofen 800 mg Tablet 800 mg PO Q6H PRN (Reason: Pain) RF: 0 Discharge Orders: Discharge Order (Routine); Ordered 05/07/21 Ordered By: Brittaney Urbina Admission Data Admit Date/Time: 05/05/21 11:07 Attending Provider: Brittaney Urbina Admit Provider: Brittaney Urbina Primary Care Provider: Erendira Lombardi Other Providers: Roberto Kruse ; Jane Arroyo ; Skyler Ackerman ; Norbert De León ; Mehrdad Bower ; Deshaun Hogan ; Everette Cronin ; Gayle Aguirre ; Abbie Queen ; Tiny Freeman ; Tiffanie Estevez ; Derik Harvey ; Anton Whitman ; Clayton Chaudhry ; Frederic Kasper ; Cheikh Shipley ; Ricky Ruiz ; Skyler Leiva ; Nadeem Stephens ; Rosy Bueno ; Manuel Wu ; Tiny Nugent ; Bradford Mcknight Coding Level of Care Code D/C Day Management <30 mins Diagnoses Status post spinal surgery Z98.890 Time Spent (min) 25
[2021-05-07] MEDS ORDERED: bisacodyL 10 MG SUPP PR PRN (11:03)
--- NOTE | 2021-05-07 16:56 | Hospitalist Progress Note ---
Date of Service May 07, 2021 Assessment & Plan (1) Status post spinal surgery: S/p C6-C7 Anterior Cervical Discectomy and Fusion with Dr. Urbina on 05/05. - Drain removed on 04/05. - Post-op care per primary team. - DVT ppx per primary team (2) Chest pain: Likely MSK vs. neuropathic pain. No suspicion this is cardiac in nature. - Voltaren gel did not help, but capsaicin cream did. Sent script for this to her pharmacy. - Discussed transition from fluoxetine to duloxetine with PCP. - Despite its help, the patient was not as interested in restarting gabapentin, so defer this to outpatient. (3) DVT prophylaxis: SCDs - Chemoprophylaxis per primary team. Patient is low risk for VTE given age, general wellness. Admission and Anticipated Discharge Date Admission Date: May 05, 2021 Subjective Still with some chest pain. The Voltaren gel didn't help, but the capsaicin cream did help some. Physical Exam Constitutional: WD/WN, vitals as above Eyes: EOM intact bilaterally; no conjunctival abnormality ENMT: external ear and nose normal, oropharynx normal Neck: trachea midline, no thyromegaly normal visual inspection Respiratory: normal respiratory effort, lungs clear to auscultation no respiratory distress Cardiovascular: RRR, no murmur, no edema Gastrointestinal (Abdomen): Inspection/Auscultation: abdomen normal to inspection; abdomen not distended Musculoskeletal: no cyanosis or clubbing, extremities motor strength 5/5 Skin: no rashes, warm and dry Neurologic: moves all extremities and awake Psychiatric: Orientation: alert, oriented to person and cooperative Results & Data Results & Data ([facility]) Vital Signs (Past 12 Hours) Vital Signs Temp Pulse Resp BP Pulse Ox 05/07/21 09:49 36.8 C 68 16 114/76 97 05/07/21 07:34 36.8 C 68 16 114/76 97 05/07/21 07:00 75 16 98 PG Care Time/CCT Total # of Minutes Spent Total Time Spent with Patient: Total time spent is greater than 50% in coordination of care (as documented) at patient's floor/unit and/or counseling patient: Coding Level of Care Code 70225 Subseq Hosp Care Lvl 2 Diagnoses Status post spinal surgery Z98.890 Chest pain R07.9 DVT prophylaxis Z29.9
--- NOTE | 2021-05-09 18:16 | Operative Report ---
PG Post Operative Report Pre & Post Diagnosis Operation Date: 05/05/21 07:15 Pre-Op Diagnosis: Cervical Myelopathy with C6-C7 severe lateral recess stenosis with impingement and deformity of the cord Cervical Radiculopathy right C7 with right C6-7 foraminal stenosis Post-Op Diagnosis: Cervical Myelopathy with C6-C7 severe lateral recess stenosis with impingement and deformity of the cord Cervical Radiculopathy right C7 with right C6-7 foraminal stenosis I identified the patient and participated in the time-out.: Yes Procedure 1. Anterior Cervical Discectomy and Fusion C6-7 2. Anterior Cervical Instrumentation same levels 3. Anterior Interbody Device same levels 4. Local Autograft for anterior cervical fusion 5. Allograft, morselized (DBM) Surgeon Brittaney Urbina MD [place] [employer] Machine Operator Anton Reid PA-C Estimated Blood Loss 50 Findings Consistent with Post-Op Diagnosis Specimens none Description of Procedure Implants: 1. K2M [place] Cervical Interbody - 7deg, 13x16, 8 2. K2M [place] anterior cervical plate 20mm with 4.0x16mm screws (x4) 3. [employer] Adam DBM Drains: 1. JOCELIN drain x 1 (10 [place]) Indications: Patient is a 35 year old lady who presented to my clinic on March 26, 2021 with a 2 month history of balance issues in context of worsened neck pain in the last few months. Her exam was concerning for tandem gait difficulties and lower extremity hyperreflexia. MRI of the cervical spine was ordered and showed severe right lateral recess and foraminal stenosis at C6-7. 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 Given the presence of myelopathy with functional limitation to patient, a discussion was had with her with regards to surgical management of this issue. Informed consent was obtained and patient was booked for above procedure. On day of surgery, patient was identified in pre-op holding area. History and Physical was updated, surgical site was marked, and consent was confirmed. Risks, benefits and alternatives were discussed again and I answered all their questions. Description of procedure: Patient was brought to the operating room and underwent general anesthesia. Patient was placed supine on the operating table with neck in gentle extension. Face, eyes, bony prominences, and peripheral nerves were well protected. SCDs were applied to bilateral legs to reduce risk of DVT. Anterior cervical region was prepped and draped in standard fashion. A time-out was performed and documented. This included confirmation of administration of prophylactic antibiotics prior to incision. Anterior Argueta-Islas type approach was made on the right side. The carotid artery was palpated and retracted laterally. The anterior cervical spine was visualized and a localization needle was placed in the affected disc space and confirmed with lateral portable x-ray. The longus coli was elevated bilaterally and a self retaining retractor placed. Anterior discectomy was performed with disc knife, ronguers, and currettes. Anterior osteophytes were removed and saved for local autograft. Lipscomb type distraction pins were placed into the vertebral body above and below the disc. Gentle distraction was applied. Posterior discectomy with decompression of the central spinal cord and bilateral foraminal areas was performed with high speed jeaneth, curettes, and ronguers. Once the decompression was judged to be adequate, attention was turned to the preparation of the interspace for fusion. A jeaneth and currettes were used to prepare endplates for fusion with flat, bleeding surfaces. A trial sizer was used to size the interbody device. The interbody device was packed with local bone and DBM allograft. The interbody device was placed in the interspace and the distraction pins were removed. Bone wax was used to control bleeding from the pin sites. An appropriate size anterior cervical plate was selected. The screw sites were pre-drilled. The plate was secured with two screws into the vertebral body above and two into the body below. The self retaining retractor was removed and the wound checked for hemos tasis. Lateral portable x-ray imaging confirmed the correct surgical level and implant positions. The wound was irrigated. There was good hemostasis. A JOCELIN drain was inserted below the incision. The platsyma layer was closed with 2-0 vicryl and the skin with 3-0 monocryl. Steristrips, and a sterile dressing were applied. The patient was awakened and taken to the recovery room in stable condition. Neuromonitoring was performed throughout the case using SSEP, MEP, EMG and vocal cord monitoring. No concerning changes were noted throughout the case. There were no intraoperative complications noted. Sponge and needle counts were correct x2 at the conclusion of the case. I attest to the content of the Intraoperative Record and any orders documented therein. Any exceptions are noted below.
== END 2021-05-07 10:47 | disposition home or self-care (01) | DRG 472 ==
LOC: ASU 05:42 → 3E 11:07